=== PATIENT | male | born 1975 | race African-American/Black ===

== ENCOUNTER 2016-06-02 03:03 | Observation (INO) | payer MEDICAID ==
[~2016-06-02] VITALS: Ht 172.7 cm; Wt 105.0 kg
[2016-06-02] VITALS (7 sets, daily range): BP systolic 119–142; BP diastolic 56–86; PULSE 79–114; RESP 15–20; TEMP 97.9–99.9; O2SAT 96–100
[~2016-06-02 03:03] MED LIST: ALBU8I INH; AMLO5TAB22 PO; ATRO0.05 EACH EYE; FISH1000 PO; HYDR-3535 PO; PRED1SUS OP; ZOFR4TAB3 SL
[2016-06-02] MEDS ORDERED: CELE200C PO (03:27)
[2016-06-02] MEDS ORDERED: ATRO1SOL11 EACH EYE (03:27)
[2016-06-02] MEDS ORDERED: GABA300C5 PO (03:27)
[2016-06-02] MEDS ORDERED: PRED1SUS EACH EYE (03:27)
[2016-06-02] MEDS ORDERED: ASPI325T PO (03:27)
[2016-06-02] MEDS ORDERED: AMLO10TA2 PO (03:27)
[2016-06-02] MEDS ORDERED: COMB0.2S EACH EYE (03:27)
[2016-06-02] MEDS ORDERED: TRAM50TA PO (03:27)
--- NOTE | 2016-06-02 03:39 | PD ---
HPI Chief Complaint: Skin Problem Time Seen by Provider: 03:35 Travel History International Travel<30 days: No Contact w/Intl Traveler<30days: No Traveled to known affect area: No History of Present Illness HPI This is a 40-year-old male who had a total hip replacement 10 days ago at an outside hospital who presents to the emergency department 2 days of soreness and pain in his right buttock area, constant, severe making it difficult for him to lay on his buttocks. He also has an area of swelling on his left thigh which is smaller. He denies any fevers or chills. He's not had a bowel movement today and isn't sure if it's painful when he defecates. He does have a history of ankylosing spondylitis. PFSH Past Medical History Asthma: Yes Cardiovascular Problems: Yes (IRREGULAR HEART BEAT) Diminished Hearing: No Hypertension: Yes Musculoskeletal: Yes (HIP DISEASE) Respiratory: Yes (ASTHMA) Past Surgical History Eye Surgery: Yes (EYERITIS) Social History Alcohol Use: No Tobacco Use: Yes (QUIT 12/2015) Substance Use: Yes (MARIJUANA) Allergies-Medications (Allergen,Severity, Reaction): Coded Allergies: No Known Allergies (Verified , 06/02/16) Reported Meds & Prescriptions Reported Meds & Active Scripts Active Reported Combigan Opth Drops (Brimonidine-Timolol Opth Drops) 0.2-0.5% Soln 1 Drop EACH EYE Q12HR Atropine Opth Drops 1% Soln 1 Drop EACH EYE TID Pred Forte Opth Drops (Prednisolone Acetate Opth Drops) 1% Susp 1 Drop EACH EYE QID Aspirin 325 Mg Tab 325 Mg PO BID Amlodipine (Amlodipine Besylate) 10 Mg Tab 10 Mg PO DAILY Tramadol (Tramadol HCl) 50 Mg Tab 50 Mg PO Q8H PRN Gabapentin 300 Mg Cap 300 Mg PO HS Celebrex (Celecoxib) 200 Mg Cap 200 Mg PO BID Review of Systems Except as stated in HPI: all other systems reviewed are Neg Physical Exam Narrative GENERAL:Well appearing, no acute distress SKIN: Induration of the right buttock along the crease extending from the top to the rectum, rectal exam is tender to palpation, area is warm. Small discrete area proximal to the left hip replacement scar which is raised but not warm or indurated. HEAD: Atraumatic. Normocephalic. EYES: Pupils equal and round. No injection or drainage. ENT: Moist mucous membranes NECK: Trachea midline. CARDIOVASCULAR: Regular rate and rhythm. No murmur appreciated. RESPIRATORY: Clear to auscultation. Breath sounds equal bilaterally. GASTROINTESTINAL: Abdomen soft, non-tender, nondistended. MUSCULOSKELETAL: No obvious deformities. NEUROLOGICAL: Awake and alert. No obvious cranial nerve deficits. Moving all extremities. PSYCHIATRIC: Appropriate mood and affect; insight and judgment normal. Data Data Last Documented VS Vital Signs Date Time Temp Pulse Resp B/P Pulse Ox O2 Delivery O2 Flow Rate FiO2 06/02/16 03:05 97.9 114 15 142/86 97 Room Air Orders Complete Blood Count With Diff (06/02/16 03:36) Comprehensive Metabolic Panel (06/02/16 03:36) ^ Insert Iv (06/02/16 03:36) Westergren Sedimentation Rate (06/02/16 03:36) C-Reactive Protein (Crp) (06/02/16 03:36) Ct Pelvis W Iv Contrast(Rout) (06/02/16 ) Iohexol 350 Inj (Omnipaque 350 Inj) (06/02/16 05:34) Labs Laboratory Tests Test 06/02/16 03:50 White Blood Count 8.2 TH/MM3 Red Blood Count 4.09 MIL/MM3 Hemoglobin 11.2 GM/DL Hematocrit 32.9 % Mean Corpuscular Volume 80.3 FL Mean Corpuscular Hemoglobin 27.3 PG Mean Corpuscular Hemoglobin 34.0 % Concent Red Cell Distribution Width 15.9 % Platelet Count 326 TH/MM3 Mean Platelet Volume 7.6 FL Neutrophils (%) (Auto) 76.1 % Lymphocytes (%) (Auto) 16.4 % Monocytes (%) (Auto) 6.5 % Eosinophils (%) (Auto) 0.6 % Basophils (%) (Auto) 0.4 % Neutrophils # (Auto) 6.3 TH/MM3 Lymphocytes # (Auto) 1.3 TH/MM3 Monocytes # (Auto) 0.5 TH/MM3 Eosinophils # (Auto) 0.0 TH/MM3 Basophils # (Auto) 0.0 TH/MM3 CBC Comment DIFF FINAL Differential Comment Erythrocyte Sedimentation Rate 37 mm/hr Sodium Level 139 MEQ/L Potassium Level 4.0 MEQ/L Chloride Level 106 MEQ/L Carbon Dioxide Level 24.5 MEQ/L Anion Gap 9 MEQ/L Blood Urea Nitrogen 18 MG/DL Creatinine 0.88 MG/DL Estimat Glomerular Filtration 116 ML/MIN Rate Random Glucose 101 MG/DL Calcium Level 8.5 MG/DL Total Bilirubin 0.5 MG/DL Aspartate Amino Transf 20 U/L (AST/SGOT) Alanine Aminotransferase 30 U/L (ALT/SGPT) Alkaline Phosphatase 67 U/L C-Reactive Protein 2.33 MG/DL Total Protein 7.0 GM/DL Albumin 3.6 GM/DL MDM Medical Decision Making Medical Screen Exam Complete: Yes Emergency Medical Condition: Yes Interpretation(s) Afebrile, tachycardic, mild hypertension No leukocytosis Electrolytes are reassuring CRP is 2.3 Sedimentation rate is 37 Last [address] 06/02/16 0000 Signed Impressions: Service Date/Time: Thursday, June 02, 2016 05:55 - CONCLUSION: Mild subcutaneous stranding of the bilateral gluteal regions without evidence for abscess. Eladio Vasquez MD Differential Diagnosis Perirectal abscess, perianal abscess, sepsis Narrative Course This is a 40-year-old male who had a total hip replacement 10 days ago in [place] who presents the emergency department with pain in his rectal area and involving the buttocks. Labs are obtained which demonstrate elevated inflammatory markers but a normal white blood cell count. CT was obtained which demonstrates stranding in the gluteal region. Clinically I think the patient has a perirectal abscess. I spoke to Dr. Alonzo with colorectal surgery who is going to come see the patient in the emergency department and evaluate him. Zee Gómez MD Jun 02, 2016 03:39
[2016-06-02 04:10] LABS: AUTOMATED NEUTROPHIL # 6.3 TH/MM3 (1.8-7.7); BASOPHIL % 0.4 % (0.0-2.0); EOSINOPHIL % 0.6 % (0.0-4.0); HEMATOCRIT 32.9 % (39.0-51.0); HEMO FLAGS DIFF FINAL; LYMPH % 16.4 % (9.0-44.0); LYMPHOCYTE # 1.3 TH/MM3 (1.0-4.8); MEAN CELL VOLUME 80.3 FL (80.0-100.0); MEAN CORPUSCULAR HEMOGLOBIN 27.3 PG (27.0-34.0); MONO % 6.5 % (0.0-8.0); NEUT % 76.1 % (16.0-70.0); PLATELET COUNT 326 TH/MM3 (150-450); RED BLOOD COUNT 4.09 MIL/MM3 (4.50-5.90); RED CELL DISTRIBUTION WIDTH 15.9 % (11.6-17.2); WHITE BLOOD COUNT 8.2 TH/MM3 (4.0-11.0)
[2016-06-02 04:21] LABS: ALT (GPT) 30 U/L (12-78); ANION GAP 9 MEQ/L (5-15); AST (GOT) 20 U/L (15-37); BICARBONATE 24.5 MEQ/L (21.0-32.0); BLOOD UREA NITROGEN 18 MG/DL (7-18); CHLORIDE 106 MEQ/L (98-107); GLOMERULAR FILTRATION RATE 116 ML/MIN (>89); SODIUM (NA) 139 MEQ/L (136-145)
[2016-06-02 04:23] LABS: ALKALINE PHOSPHATASE 67 U/L (45-117); TOTAL BILIRUBIN ADULT 0.5 MG/DL (0.2-1.0)
[2016-06-02] MEDS ORDERED: IOHEXOL 350 MG/ML 10 ML VIAL (for RAD DIAG) IV ONE (05:34)
--- NOTE | 2016-06-02 06:41 | RADRPT ---
EXAM DATE/TIME: 06/02/2016 05:55 [facility] COMPARISON: No previous studies available for comparison. INDICATIONS : Buttock pain following hip replacement surgery Evaluate abscess. IV CONTRAST: 100 cc Omnipaque 350 (iohexol) IV ORAL CONTRAST: No oral contrast ingested. RADIATION DOSE: 18.67 CTDIvol (mGy) MEDICAL HISTORY : Hypertension. SURGICAL HISTORY : Hip replacement ENCOUNTER: Initial ACUITY: 1 day PAIN SCALE: 8/10 LOCATION: Perianal TECHNIQUE: Volumetric scanning of the pelvis was performed. Using automated exposure control and adjustment of t he mA and/or kV according to patient size, radiation dose was kept as low as reasonably achievable to obtain optimal diagnostic quality images. FINDINGS: There are bilateral total hip arthroplasties. Visualized bowel and urinary bladder are unremarkable. No free fluid. No adenopathy. There is subcutaneous stranding of the bilateral gluteal soft tissues b ut there is no evidence for abscess. CONCLUSION: Mild subcutaneous stranding of the bilateral gluteal regions without evidence for abscess. Eladio Vasquez MD on June 02, 2016 at 6:39 Board Certified Radiologist. This report was verified electronically.
[2016-06-02] MEDS ORDERED: ONDANSETRON HCL 4 MG/2 ML VIAL ONE (08:26)
[2016-06-02] MEDS ORDERED: ONDANSETRON ODT 4 MG TAB PO ONE (08:30)
--- NOTE | 2016-06-02 08:31 | PD ---
Physical Exam Date Seen by Provider: Jun 02, 2016 Data Data Last Documented VS Vital Signs Date Time Temp Pulse Resp B/P Pulse Ox O2 Delivery O2 Flow Rate FiO2 06/02/16 03:05 97.9 114 15 142/86 97 Room Air Orders Complete Blood Count With Diff (06/02/16 03:36) Comprehensive Metabolic Panel (06/02/16 03:36) ^ Insert Iv (06/02/16 03:36) Westergren Sedimentation Rate (06/02/16 03:36) C-Reactive Protein (Crp) (06/02/16 03:36) Ct Pelvis W Iv Contrast(Rout) (06/02/16 ) Iohexol 350 Inj (Omnipaque 350 Inj) (06/02/16 05:34) Electrocardiogram (06/02/16 ) Ondansetron Odt (Zofran Odt) (06/02/16 08:30) Ondansetron Inj (Zofran Inj) (06/02/16 08:26) Vancomycin Inj (Vancomycin Inj) (06/02/16 08:45) Admit Order (Ed Use Only) (06/02/16 08:35) Labs Laboratory Tests Test 06/02/16 03:50 White Blood Count 8.2 TH/MM3 Red Blood Count 4.09 MIL/MM3 Hemoglobin 11.2 GM/DL Hematocrit 32.9 % Mean Corpuscular Volume 80.3 FL Mean Corpuscular Hemoglobin 27.3 PG Mean Corpuscular Hemoglobin 34.0 % Concent Red Cell Distribution Width 15.9 % Platelet Count 326 TH/MM3 Mean Platelet Volume 7.6 FL Neutrophils (%) (Auto) 76.1 % Lymphocytes (%) (Auto) 16.4 % Monocytes (%) (Auto) 6.5 % Eosinophils (%) (Auto) 0.6 % Basophils (%) (Auto) 0.4 % Neutrophils # (Auto) 6.3 TH/MM3 Lymphocytes # (Auto) 1.3 TH/MM3 Monocytes # (Auto) 0.5 TH/MM3 Eosinophils # (Auto) 0.0 TH/MM3 Basophils # (Auto) 0.0 TH/MM3 CBC Comment DIFF FINAL Differential Comment Erythrocyte Sedimentation Rate 37 mm/hr Sodium Level 139 MEQ/L Potassium Level 4.0 MEQ/L Chloride Level 106 MEQ/L Carbon Dioxide Level 24.5 MEQ/L Anion Gap 9 MEQ/L Blood Urea Nitrogen 18 MG/DL Creatinine 0.88 MG/DL Estimat Glomerular Filtration 116 ML/MIN Rate Random Glucose 101 MG/DL Calcium Level 8.5 MG/DL Total Bilirubin 0.5 MG/DL Aspartate Amino Transf 20 U/L (AST/SGOT) Alanine Aminotransferase 30 U/L (ALT/SGPT) Alkaline Phosphatase 67 U/L C-Reactive Protein 2.33 MG/DL Total Protein 7.0 GM/DL Albumin 3.6 GM/DL [facility] Medical Record Reviewed: Yes Supervised Visit with ANGEL: No Interpretation(s) EKG at 0906: NSR at 88bpm, qt/qtc: 335/381, no acute st or t wave changes, non acute ekg Narrative Course Patient is a 40-year-old male signed out to me by Dr. Gómez, patient pending evaluation by Dr. Ritter Dr. Alonzo saw patient at bedside, plan to bring patient to the operating room for evaluation of right buttock abscess versus cellulitis. Patient will go to the operating room today for possible I&D and drainage Patient will be admitted to family practice service, case was reviewed with Dr. Ritchie who accepts pt to service Physician Communication Physician Communication reviewed case with Dr Alonzo and FP residents Diagnosis Primary Impression: Perirectal abscess Additional Impression: Perirectal cellulitis Admitting Information Admitting Physician Requests: Admit Hilary Rain DO Jun 02, 2016 08:31
--- NOTE | 2016-06-02 08:34 | HHI.HP ---
[facility] Service Family Medicine Primary Care Physician Tremayne Wellington M.D. Admission Diagnosis Diagnoses: International Travel<30 Days: No Contact w/Intl Traveler<30days: No Known Affected Area: No History of Present Illness Patient is a 40-year-old male with a PMH significant for ankylosing spondylitis , HTN. Presents here today due to new onset "bumps" all over his body but most prominent on his right buttock. Patient started developing these bumps over the last 3 days that have progressively increased in size and numbers. Start as a purititic area that then progresses to a painful lump without drainage or erythema. Firm and warm to touch. They are currently located on bilateral arms , bilateral hips, buttock. Associated with nausea but without vomiting. Endorses chills but no fevers. Denies abdominal pain, diarrhea, dysuria, chest pain, SOB. History significant for right hip total replacement on 05/22/2016 that was performed at in [place] by Dr. Chancellor Loera. Patient was not discharged on any antibiotics. This is the first episode of such events. No history of IV drug use. (Laura Ramachandran MD R2) Review of Systems Constitutional: COMPLAINS OF: Chills, DENIES: Fever, Change in appetite Eyes: DENIES: Blurred vision Respiratory: DENIES: Cough, Shortness of breath Cardiovascular: DENIES: Chest pain, Dyspnea on Exertion, Lower Extremity Edema Gastrointestinal: COMPLAINS OF: Nausea, DENIES: Abdominal pain, Diarrhea, Vomiting Genitourinary: DENIES: Dysuria Integumentary: COMPLAINS OF: Pruritus, DENIES: Abnormal pigmentation, Rash Neurologic: DENIES: Headache (Laura Ramachandran MD R2) Past Family Social History Past Medical History Ankylosing spondylitis Hypertension 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 Past Surgical History Left hip replacement 02/2016 Right hip replacement 05/22/2016 complicated by right foot drop Reported Medications Reported Meds & Active Scripts Active Reported Combigan Opth Drops (Brimonidine-Timolol Opth Drops) 0.2-0.5% Soln 1 Drop EACH EYE Q12HR Atropine Opth Drops 1% Soln 1 Drop EACH EYE TID Pred Forte Opth Drops (Prednisolone Acetate Opth Drops) 1% Susp 1 Drop EACH EYE QID Aspirin 325 Mg Tab 325 Mg PO BID Amlodipine (Amlodipine Besylate) 10 Mg Tab 10 Mg PO DAILY Tramadol (Tramadol HCl) 50 Mg Tab 50 Mg PO Q8H PRN Gabapentin 300 Mg Cap 300 Mg PO HS Celebrex (Celecoxib) 200 Mg Cap 200 Mg PO BID (Laura Ramachandran MD R2) Allergies: Coded Allergies: No Known Allergies (Verified , 06/02/16) Family History Mother: Hypertension, multiple myeloma Father: Unknown Social History Lives with godmother Alcohol: Denies Tobacco: Denies Illicit: Marijuana daily but did quit prior to surgery on 05/22/2016. Denies IV drug use (Laura Ramachandran MD R2) Physical Exam Vital Signs Vital Signs Date Time Temp Pulse Resp B/P Pulse Ox O2 Delivery O2 Flow Rate FiO2 06/02/16 03:05 97.9 114 15 142/86 97 Room Air Physical Exam GENERAL: This is a well-nourished, well-developed patient, in no apparent distress. SKIN: Multiple, large indurated areas on bilateral buttocks, bilateral upper extremities and right hip just below bandage at site of incision. Non- erythematous. Warm to touch. No drainage present, indurated. Bandage over her right incision dry but with some old blood underneath the center of the bandage. EYES: Abnormal shaped pupils bilaterally. Right poorly reactive to light. Left unremarkable. No scleral icterus. No injection or drainage. ENT: Nose without bleeding, purulent drainage. Throat without erythema, tonsillar hypertrophy or exudate. Uvula midline. Airway patent. CARDIOVASCULAR: Regular rate and rhythm without murmurs, gallops, or rubs. RESPIRATORY: Clear to auscultation. Breath sounds equal bilaterally. No wheezes , rales, or rhonchi. GASTROINTESTINAL: Abdomen soft, non-tender, nondistended. No hepato-splenomegaly , or palpable masses. No guarding. MUSCULOSKELETAL: Right foot in boot. Extremities without clubbing, cyanosis, or edema. No calf tenderness. NEUROLOGICAL: Awake and alert. Normal speech. Laboratory Laboratory Tests Test 06/02/16 03:50 White Blood Count 8.2 Red Blood Count 4.09 Hemoglobin 11.2 Hematocrit 32.9 Mean Corpuscular Volume 80.3 Mean Corpuscular Hemoglobin 27.3 Mean Corpuscular Hemoglobin 34.0 Concent Red Cell Distribution Width 15.9 Platelet Count 326 Mean Platelet Volume 7.6 Neutrophils (%) (Auto) 76.1 Lymphocytes (%) (Auto) 16.4 Monocytes (%) (Auto) 6.5 Eosinophils (%) (Auto) 0.6 Basophils (%) (Auto) 0.4 Neutrophils # (Auto) 6.3 Lymphocytes # (Auto) 1.3 Monocytes # (Auto) 0.5 Eosinophils # (Auto) 0.0 Basophils # (Auto) 0.0 CBC Comment DIFF FINAL Differential Comment Erythrocyte Sedimentation Rate 37 Sodium Level 139 Potassium Level 4.0 Chloride Level 106 Carbon Dioxide Level 24.5 Anion Gap 9 Blood Urea Nitrogen 18 Creatinine 0.88 Estimat Glomerular Filtration 116 Rate Random Glucose 101 Calcium Level 8.5 Total Bilirubin 0.5 Aspartate Amino Transf 20 (AST/SGOT) Alanine Aminotransferase 30 (ALT/SGPT) Alkaline Phosphatase 67 C-Reactive Protein 2.33 Total Protein 7.0 Albumin 3.6 (Laura Ramachandran MD R2) Result Diagram: 06/02/16 0350 06/02/16 0350 Imaging Last Impressions Pelvis CT 06/02/16 0000 Signed Impressions: Service Date/Time: Thursday, June 02, 2016 05:55 - CONCLUSION: Mild subcutaneous stranding of the bilateral gluteal regions without evidence for abscess. Eladio Vasquez MD (Laura Ramachandran MD R2) Assessment and Plan Assessment and Plan 40-year-old male with a PMH significant for ankylosing spondylitis. Admitted for possible perianal abscess and new onset skin induration on upper and lower extremities Code Status Full Discussed Condition With Dr. Martinez and Dr. Short (Laura Ramachandran MD R2) Attending Attestation THIS CASE WAS DISCUSSED WITH THE RESIDENT PHYSICIANS. I HAVE REVIEWED THE RECORD AND AGREE WITH THE ABOVE NOTE AND PLAN OF CARE WAS DISCUSSED. I HAVE AUTHORIZED THE ORDER FOR ADMISSION TO AN IN-PATIENT STATUS. (Troy Short MD) Problem List: (1) Perirectal abscess Status: Acute Plan: New-onset perirectal abscess that has acutely worsened over the last few days. No systemic symptoms. Afebrile and no leukocytosis. Based on results of I&D by colorectal, will need to consider other etiologies including polyarthritis nodosum vs hardware infection from recent total right hip replacement. Will provide broad-spectrum antibiotics in the interim. -CBC, CMP unremarkable -Blood cultures obtained -UA negative -Hepatitis panel ordered -CRP and ESR slightly elevated. Colorectal surgery consulted: Appreciate recommendations * I&D now * Requested that if wound does not produce very much fluid, consider biopsy for evaluation of CRUZ Imaging: * CT pelvis: Mild subcutaneous stranding of the bilateral gluteal region without evidence of abscess Medications: * Vancomycin 06/02- * Zosyn 06/02- (2) Ankylosing spondylitis Status: Acute Plan: Long history of ankylosing spondylitis that has been complicated by eye complications. -Continue home eyedrops which includes the following (atropine, brimodidine- timolol, prednisolone) (3) History of total right hip arthroplasty Status: Acute Plan: Recent surgical intervention on 05/22/19 17,000 complicated by right foot drop. Was not discharged on any home antibiotics. 1 skin lesion was close to incision. Based on clinical improvement, will consider calling orthopedic surgeon as needed. -Continue home gabapentin and aspirin (4) Nutrition, metabolism, and development symptoms Status: Acute Plan: Diet: NPO until after surgery Electrolytes: Unremarkable, continue to monitor Fluids: NS at 60 DVT prophylaxis: SCD GI prophylaxis: Not indicated Chronic conditions: * HTN: Continue home amlodipine (Laura Ramachandran MD R2) Laura Ramachandran MD R2 Jun 02, 2016 08:34 Troy Short MD Jun 02, 2016 17:50
[2016-06-02] MEDS ORDERED: VANCOMYCIN INJ 1,600 MG in SODIUM CHLORID 0.9% 500 ML INJ 500 ML IV ONE (08:45)
[2016-06-02] MEDS ORDERED: ASPIRIN 325 MG TAB PO SCH (09:00)
[2016-06-02] MEDS ORDERED: NON-FORMULARY DRUG (Brimonidine-Timolol Opth Drops (Combigan Opth Drops) 1 DROP) EACH EYE SCH (09:00)
[2016-06-02] MEDS ORDERED: SODIUM CHLOR 0.9% 1000 ML INJ 1,000 ML IV SCH (09:06)
[2016-06-02] MEDS ORDERED: ACETAMINOPHEN/HYDROcodone 325 MG/5 MG TAB PO PRN (09:15)
[2016-06-02] MEDS ORDERED: SODIUM CHLORIDE 0.9% FLUSH 5 ML FLUSH FLUSH PRN (09:15)
[2016-06-02] MEDS ORDERED: Vancomycin Consult Pharmacy 1 EA OTHER SCH (09:15)
[2016-06-02] MEDS ORDERED: ACETAMINOPHEN 325 MG TAB PO PRN (09:15)
[2016-06-02] MEDS ORDERED: NALOXONE HCL 0.4 MG/ML AMP IV PRN (09:15)
[2016-06-02] MEDS ORDERED: MORPHINE SULFATE 4 MG/ML INJ IV PRN (09:15)
[2016-06-02] MEDS ORDERED: LIDOCAINE 1%/EPINEPHrine 1:100,000 SOLN 30 ML VIAL ONE (09:44)
[2016-06-02] MEDS ORDERED: BUPIVACAINE HCL PF 0.5% 30 ML VIAL ONE (09:44)
[2016-06-02] MEDS ORDERED: BUPIVACAINE/EPINEPHRINE 0.5% PF 30 ML VIAL ONE (09:45)
[2016-06-02] MEDS: BRIMONIDINE TARTRATE 0.2% OPHT SOLN 5 ML BTL EACH EYE SCH ×2 (10:11→21:55)
[2016-06-02] MEDS: TIMOLOL MALEATE 0.5% OPHT SOLN 5 ML BTL EACH EYE SCH ×2 (10:11→21:55)
[2016-06-02] MEDS: ATROPINE SULFATE 1% OPHT SOLN 2 ML BTL EACH EYE SCH ×3 (10:11→16:38)
[2016-06-02] MEDS: prednisoLONE ACETATE 1% OPHT SUSP 5 ML BTL EACH EYE SCH ×4 (10:12→20:19)
[2016-06-02] MEDS: PIPERACIL-TAZO 3.375 GM PREMIX 50 ML IV SCH ×3 (10:52→21:56)
[2016-06-02 11:13] LABS: BLOOD, URINE NEG (NEG); COMMENT (UR) CULT NOT INDICATED; CULTURE IF INDICATED CULT NOT INDICATED; GLUCOSE,URINE NEG (NEG); KETONE, URINE NEG (NEG); MUCUS URINE FEW /lpf (OCC); NITRITE,URINE NEG (NEG); PH, URINE 5.5 (5.0-8.5); SQUAMOUS EPITHELIAL CELL URINE <1 /hpf (0-5); URINE COLOR YELLOW (YELLW/STRAW)
[2016-06-02] MEDS ORDERED: MORPHINE SULFATE 4 MG/ML INJ IV PUSH PRN (11:15)
[2016-06-02] MEDS ORDERED: ceFAZolin 1,000 MG/NS 100 ML IV SCH ×2 (13:00)
[2016-06-02] MEDS: SODIUM CHLOR 0.9% 1000 ML INJ 1,000 ML IV SCH ×2 (13:00→14:29)
[2016-06-02] MEDS ORDERED: METRONIDAZOLE 500 MG/100 ML ISONTONIC SOLN IV SCH (13:00)
[2016-06-02] MEDS ORDERED: FAMOTIDINE 20 MG/2 ML VIAL ONE (13:07)
[2016-06-02] MEDS ORDERED: PHENYLEPH/NS 1000 MCG/10 ML SYR IV ONE (13:38)
[2016-06-02] MEDS ORDERED: NEOSTIGMINE 3 MG/3 ML SYR IV ONE (13:38)
[2016-06-02] MEDS ORDERED: ONDANSETRON HCL 4 MG/2 ML VIAL IV PUSH ONE (13:38)
[2016-06-02] MEDS ORDERED: PROPOFOL 200 MG/20 ML AMP IV ONE (13:38)
[2016-06-02] MEDS ORDERED: MIDAZOLAM HCL 2 MG/2 ML VIAL ONE (14:18)
[2016-06-02] MEDS ORDERED: fentaNYL CITRATE 250 MCG/5 ML AMP ONE (14:18)
[2016-06-02] MEDS ORDERED: DO NOT ADM ANY ANTICOAGULANT DRUGS XX PRN (14:45)
[2016-06-02] MEDS ORDERED: ENALAPRILAT 1.25 MG/ML VIAL IV PRN (17:15)
[2016-06-02] MEDS: ACETAMINOPHEN/HYDROcodone 325 MG/10 MG TAB PO PRN ×2 (17:31→21:55)
--- NOTE | 2016-06-02 17:50 | HHI.HP ---
[facility] Service Family Medicine Primary Care Physician Tremayne Wellington M.D. Admission Diagnosis Diagnoses: (1) Perirectal abscess (2) Ankylosing spondylitis (3) History of total right hip arthroplasty (4) Nutrition, metabolism, and development symptoms International Travel<30 Days: No Contact w/Intl Traveler<30days: No Known Affected Area: No History of Present Illness 40 yo M presenting with 3 days of subcutaneous nodules presenting over his body. He states that he noticed these nodules starting 3 days ago most noticeably in the buttocks and perirectal area, however he has noticed them on his back, bilateral upper extremities, and bilateral legs/thighs. These nodules are tender to touch and pressure as well as pruritic. He also has developed nausea without vomiting. He denies fevers/chills, recent illness, or chest pain/palpitations. The nodules on his buttock are exquisitely painful and feel swollen to the patient, however have not had any drainage from them. He has a h/o ankylosing spondylitis diagnosed in 2014. He also has recently had both of his hips replaced, with his right hip the most recently done on 05/22 after which he developed right lower leg drop-foot and later lower leg numbness. Review of Systems Constitutional: COMPLAINS OF: Fatigue, Chills, DENIES: Fever, Dizziness Eyes: DENIES: Blurred vision, Eye pain, Vision loss Ears, nose, mouth, throat: DENIES: Tinnitus Respiratory: DENIES: Cough, Wheezing, Shortness of breath Cardiovascular: DENIES: Chest pain, Palpitations, Lower Extremity Edema Gastrointestinal: COMPLAINS OF: Nausea, DENIES: Abdominal pain, Vomiting Musculoskeletal: COMPLAINS OF: Joint pain, DENIES: Muscle aches, Stiffness, Joint Swelling Past Family Social History Past Medical History Ankylosing spondylitis Hypertension 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 Past Surgical History Left hip replacement 02/2016 Right hip replacement 05/22/2016 complicated by right foot drop Allergies: Coded Allergies: No Known Allergies (Verified , 06/02/16) Family History Mother: Hypertension, multiple myeloma Father: Unknown Social History Lives with godmother Alcohol: Denies Tobacco: Denies Illicit: Marijuana daily but did quit prior to surgery on 05/22/2016. Denies IV drug use Physical Exam Vital Signs Vital Signs Date Time Temp Pulse Resp B/P Pulse Ox O2 Delivery O2 Flow Rate FiO2 06/02/16 16:00 98.7 79 18 126/56 98 06/02/16 14:45 99.0 76 17 114/62 97 Nasal Cannula 2 06/02/16 14:30 79 19 113/63 97 Nasal Cannula 2 06/02/16 14:15 74 14 117/67 97 Nasal Cannula 2 06/02/16 14:09 99.1 73 15 116/62 94 Nasal Cannula 2 06/02/16 12:00 99.9 89 18 123/63 99 06/02/16 09:52 102 18 119/74 100 Room Air 06/02/16 09:34 97 06/02/16 03:05 97.9 114 15 142/86 97 Room Air Physical Exam GENERAL: This is a well-nourished, well-developed patient, lying comfortably in bed SKIN: Multiple, large indurated areas on bilateral buttocks, bilateral upper extremities, left scapular area, and right hip just below bandage at site of incision. Non-erythematous. Warm to touch. No drainage present, indurated. Bandage over her right incision dry but with some old blood underneath the center of the bandage. CARDIOVASCULAR: Regular rate and rhythm without murmurs, gallops, or rubs. RESPIRATORY: Clear to auscultation. Breath sounds equal bilaterally. No wheezes , rales, or rhonchi. GASTROINTESTINAL: Abdomen soft, non-tender, nondistended. MUSCULOSKELETAL: Right foot splint for drop-foot. Extremities without clubbing, cyanosis, or edema. No calf tenderness. NEUROLOGICAL: Awake and alert. Normal speech. Laboratory Laboratory Tests Test 06/02/16 06/02/16 03:50 10:53 White Blood Count 8.2 Red Blood Count 4.09 Hemoglobin 11.2 Hematocrit 32.9 Mean Corpuscular Volume 80.3 Mean Corpuscular Hemoglobin 27.3 Mean Corpuscular Hemoglobin 34.0 Concent Red Cell Distribution Width 15.9 Platelet Count 326 Mean Platelet Volume 7.6 Neutrophils (%) (Auto) 76.1 Lymphocytes (%) (Auto) 16.4 Monocytes (%) (Auto) 6.5 Eosinophils (%) (Auto) 0.6 Basophils (%) (Auto) 0.4 Neutrophils # (Auto) 6.3 Lymphocytes # (Auto) 1.3 Monocytes # (Auto) 0.5 Eosinophils # (Auto) 0.0 Basophils # (Auto) 0.0 CBC Comment DIFF FINAL Differential Comment Erythrocyte Sedimentation Rate 37 Sodium Level 139 Potassium Level 4.0 Chloride Level 106 Carbon Dioxide Level 24.5 Anion Gap 9 Blood Urea Nitrogen 18 Creatinine 0.88 Estimat Glomerular Filtration 116 Rate Random Glucose 101 Calcium Level 8.5 Total Bilirubin 0.5 Aspartate Amino Transf 20 (AST/SGOT) Alanine Aminotransferase 30 (ALT/SGPT) Alkaline Phosphatase 67 C-Reactive Protein 2.33 Total Protein 7.0 Albumin 3.6 Urine Color YELLOW Urine Turbidity CLEAR Urine pH 5.5 Urine Specific Hubbell GREATER THAN 1.050 Urine Protein TRACE Urine Glucose (UA) NEG Urine Ketones NEG Urine Occult Blood NEG Urine Nitrite NEG Urine Bilirubin NEG Urine Urobilinogen LESS THAN 2.0 Urine Leukocyte Esterase NEG Urine WBC 1 Urine Squamous Epithelial <1 Cells Urine Mucus FEW Microscopic Urinalysis Comment CULT NOT INDICATED Date/Time Procedure Status Source Growth 06/02/16 08:15 Aerobic Blood Culture Received Blood Peripheral Pending 06/02/16 08:15 Anaerobic Blood Culture Received Blood Peripheral Pending Result Diagram: 06/02/16 0350 06/02/16 0350 Imaging Last Impressions Pelvis CT 06/02/16 0000 Signed Impressions: Service Date/Time: Thursday, June 02, 2016 05:55 - CONCLUSION: Mild subcutaneous stranding of the bilateral gluteal regions without evidence for abscess. Eladio Vasquez MD Assessment and Plan Assessment and Plan 40-year-old male with a PMH significant for ankylosing spondylitis. Admitted for possible perianal abscess and new onset skin induration on upper and lower extremities Problem List: (1) Perirectal abscess Status: Acute Plan: New-onset perirectal abscess vs. cellulitis No systemic symptoms. Afebrile and no leukocytosis. Broad Spectrum antibiotics as below: Vancomycin 06/02- Zosyn 06/02- Colorectal consulted and following - will be taking patient to the OR for debridement and I&D of the area with cultures and possibly biopsy - CT scan without obvious fluid collection - Less likely auto-immune disorder or vasculitis - biopsy to be taken in the OR Blood cultures pending CBC, CMP unremarkable UA negative Hepatitis panel ordered CRP and ESR slightly elevated. (2) Ankylosing spondylitis Status: Acute Plan: Long history of ankylosing spondylitis that has been complicated by eye complications. -Continue home eyedrops which includes the following (atropine, brimodidine- timolol, prednisolone) (3) History of total right hip arthroplasty Status: Acute Plan: Recent surgical intervention on 05/22/19 17,000 complicated by right foot drop. Was not discharged on any home antibiotics. 1 skin lesion was close to incision. Based on clinical improvement, will consider calling orthopedic surgeon as needed. -Continue home gabapentin and aspirin (4) Nutrition, metabolism, and development symptoms Status: Acute Plan: Diet: NPO until after surgery Electrolytes: Unremarkable, continue to monitor Fluids: NS at 60 DVT prophylaxis: SCD GI prophylaxis: Not indicated Chronic conditions: * HTN: Continue home amlodipine Physician Certification 2 Midnight Certification Type: Admission for Inpatient Services Order for Inpatient Services The services are ordered in accordance with Medicare regulations or non- Medicare payer requirements, as applicable. In the case of services not specified as inpatient-only, they are appropriately provided as inpatient services in accordance with the 2-midnight benchmark. Estimated LOS (days): 2 2 days is the estimated time the patient will need to remain in the hospital, assuming treatment plan goals are met and no additional complications. Post-Hospital Plan: Not yet determined Troy Short MD Jun 02, 2016 17:50
[2016-06-02] MEDS: VANCOMYCIN INJ 2,000 MG in SODIUM CHLORID 0.9% 500 ML INJ 500 ML IV SCH (20:18)
[2016-06-02] MEDS: SODIUM CHLORIDE 0.9% FLUSH 5 ML FLUSH FLUSH SCH (20:18)
[2016-06-02] MEDS: GABAPENTIN 300 MG CAP PO SCH (20:19)
[2016-06-02] MEDS: ONDANSETRON HCL 4 MG/2 ML VIAL IVP PRN (20:31)
[2016-06-02] MEDS ORDERED: VANCOMYCIN INJ 1,750 MG in SODIUM CHLORID 0.9% 500 ML INJ 500 ML IV SCH (21:00)
[2016-06-02] MEDS: ACETAMINOPHEN 325 MG TAB PO PRN (23:54)
[2016-06-03] VITALS (9 sets, daily range): BP systolic 113–138; BP diastolic 55–78; PULSE 85–101; RESP 17–20; TEMP 98–101.6; O2SAT 95–99
[2016-06-03] MEDS: PIPERACIL-TAZO 3.375 GM PREMIX 50 ML IV SCH ×4 (04:59→21:49)
[2016-06-03] MEDS: ACETAMINOPHEN 325 MG TAB PO PRN (04:59)
[2016-06-03 05:35] LABS: AUTOMATED NEUTROPHIL # 7.1 TH/MM3 (1.8-7.7); BASOPHIL % 0.1 % (0.0-2.0); EOSINOPHIL # 0.1 TH/MM3 (0-0.4); EOSINOPHIL % 0.6 % (0.0-4.0); HEMATOCRIT 31.8 % (39.0-51.0); HEMO FLAGS DIFF FINAL; LYMPH % 13.4 % (9.0-44.0); LYMPHOCYTE # 1.2 TH/MM3 (1.0-4.8); MEAN CELL VOLUME 79.9 FL (80.0-100.0); MEAN CORPUSCULAR HEMOGLOBIN 27.4 PG (27.0-34.0); MEAN CORPUSCULAR HGB CONC 34.3 % (32.0-36.0); MONO % 4.5 % (0.0-8.0); NEUT % 81.4 % (16.0-70.0); PLATELET COUNT 287 TH/MM3 (150-450); RED BLOOD COUNT 3.99 MIL/MM3 (4.50-5.90); WHITE BLOOD COUNT 8.7 TH/MM3 (4.0-11.0)
[2016-06-03 05:54] LABS: ALKALINE PHOSPHATASE 59 U/L (45-117); ALT (GPT) 20 U/L (12-78); ANION GAP 8 MEQ/L (5-15); AST (GOT) 12 U/L (15-37); BICARBONATE 25.4 MEQ/L (21.0-32.0); BLOOD UREA NITROGEN 7 MG/DL (7-18); CHLORIDE 107 MEQ/L (98-107); GLOMERULAR FILTRATION RATE 94 ML/MIN (>89); POTASSIUM 3.5 MEQ/L (3.5-5.1); SODIUM (NA) 140 MEQ/L (136-145); TOTAL BILIRUBIN ADULT 1.1 MG/DL (0.2-1.0)
[2016-06-03] MEDS: ACETAMINOPHEN/HYDROcodone 325 MG/10 MG TAB PO PRN ×4 (06:18→21:46)
[2016-06-03] MEDS: prednisoLONE ACETATE 1% OPHT SUSP 5 ML BTL EACH EYE SCH ×4 (08:18→21:47)
[2016-06-03] MEDS: ATROPINE SULFATE 1% OPHT SOLN 2 ML BTL EACH EYE SCH ×3 (08:19→17:44)
[2016-06-03] MEDS: ASPIRIN 325 MG TAB PO SCH ×2 (08:20→21:41)
[2016-06-03] MEDS: VANCOMYCIN INJ 2,000 MG in SODIUM CHLORID 0.9% 500 ML INJ 500 ML IV SCH ×2 (08:21→21:35)
[2016-06-03] MEDS: SODIUM CHLORIDE 0.9% FLUSH 5 ML FLUSH FLUSH SCH ×2 (08:21→21:36)
[2016-06-03] MEDS: BRIMONIDINE TARTRATE 0.2% OPHT SOLN 5 ML BTL EACH EYE SCH ×2 (10:00→21:48)
[2016-06-03] MEDS: TIMOLOL MALEATE 0.5% OPHT SOLN 5 ML BTL EACH EYE SCH ×2 (10:00→21:48)
--- NOTE | 2016-06-03 10:20 | HHI.FPPN ---
Subjective Remarks Patient seen and examined this am. Febrile overnight. Reports mass/bump on back has enlarged that he can no longer lift his arm over his back. He reports new bumps are developing, the latest in his left thigh and right arm. His appetiitie is poor. He feels like hes ill and coming down with flu. He states Dr. Alonzo incised the abscess in his rectum but there was no drainage. After we stepped out of the room, the patient complained of lip swelling with no respiratory sx. The patient recieved no medications in the interim this am, he denies SOB, difficulty breathing, or feelings of throat swelling. (Digna Anderson MD R3) Objective Vitals Vital Signs Date Time Temp Pulse Resp B/P Pulse Ox O2 Delivery O2 Flow Rate FiO2 06/03/16 08:00 99.4 92 17 116/55 99 06/03/16 07:18 18 06/03/16 06:23 101.4 06/03/16 04:00 100.9 101 20 124/59 95 06/03/16 01:00 100.9 06/03/16 00:00 101.6 96 20 113/59 95 06/02/16 21:52 100 06/02/16 20:00 99.8 98 20 121/56 96 06/02/16 16:00 98.7 79 18 126/56 98 06/02/16 14:45 99.0 76 17 114/62 97 Nasal Cannula 2 06/02/16 14:30 79 19 113/63 97 Nasal Cannula 2 06/02/16 14:15 74 14 117/67 97 Nasal Cannula 2 06/02/16 14:09 99.1 73 15 116/62 94 Nasal Cannula 2 06/02/16 12:00 99.9 89 18 123/63 99 I/O 06/02/16 06/02/16 06/02/16 06/03/16 06/03/16 06/03/16 07:00 15:00 23:00 07:00 15:00 23:00 Intake Total 500 ml 582 ml 1138 ml Output Total 410 ml 400 ml 1600 ml Balance 90 ml 182 ml -462 ml Intake Oral 240 ml 360 ml IV Total 342 ml 778 ml Other 500 ml Output Urine Total 400 ml 400 ml 1600 ml Estimated Blood Loss 10 ml # Voids 1 # Bowel Movements 0 0 (Digna Anderson MD R3) Result Diagram: 06/03/16 0407 06/03/16 0407 Imaging Last Impressions Pelvis CT 06/02/16 0000 Signed Impressions: Service Date/Time: Thursday, June 02, 2016 05:55 - CONCLUSION: Mild subcutaneous stranding of the bilateral gluteal regions without evidence for abscess. Eladio Vasquez MD Objective Remarks GENERAL: This is a well-nourished, well-developed patient, lying comfortably in bed SKIN: Multiple, large indurated areas on bilateral buttocks, bilateral upper extremities, left scapular area (has increased in size from yesterday), new left thigh, and right hip just below bandage at site of incision. Non- erythematous. Warm to touch. No drainage present, indurated. Bandage over her right incision dry but with some old blood underneath the center of the bandage. CARDIOVASCULAR: Regular rate and rhythm without murmurs, gallops, or rubs. RESPIRATORY: Clear to auscultation. Breath sounds equal bilaterally. No wheezes , rales, or rhonchi. GASTROINTESTINAL: Abdomen soft, non-tender, nondistended. MUSCULOSKELETAL: Right foot splint for drop-foot. Bilateral wrist swelling appreciated. No calf tenderness. NEUROLOGICAL: Awake and alert. Normal speech. (Digna Anderson MD R3) A/P Assessment and Plan 40-year-old male with a PMH significant for ankylosing spondylitis. Admitted for possible perianal abscess and new onset skin induration on upper and lower extremities Discharge Planning DC pending further workup likely in several days. Case seen and discussed with Duarte York, Juan (Digna Anderson MD R3) Attending Attestation Pt. examined and case discussed with resident physicians I have read the above note and agree with the assessment/plan as discussed with me I was involved in all medical decision making for this patient. Troy Short MD (Troy Short MD) Problem List: (1) Skin abnormalities Status: Acute Plan: New-onset perirectal abscess vs. cellulitis vs. other Unclear if this process is representing an autoimmune process versus infectious versus allergic/reaction to hardware from hip replacement Broad Spectrum antibiotics as below: Vancomycin 06/02- Zosyn 06/02- Blood cultures obtained Due to the worsening nature today, presence of new masses/concerning areas further workup will include: Rheumatology consult MRI with contrast of area, scapula Rheumatology workup to include AMA, CRP, sedimentation rate, HLA-B27, SSA/SSB, complement C3-C4, DNA double-stranded, urine eosinophils Case was discussed with Dr. Banda who will perform biopsy of the area (2) Perirectal abscess Status: Acute Plan: Colorectal consulted and following - s/p debridement and I&D of the area with cultures, no drainage expressed per patient. No biopsy obtained in OR. - CT scan without obvious fluid collection See above. (3) Swelling of both lips Status: Acute Plan: Patient had lip swelling shortly after we examined the patient. Unclear etiology. Differential includes anesthesia side effect versus medication side effect versus other - Decadron 4 mg IV, will monitor for response - Benadryl 50 mg IV 1 - Hold Mundo-I - Continue to watch for any side effects with any medications. If Facial swelling worsens may need to be transferred to the ICU for closer monitoring. (4) Ankylosing spondylitis Status: Acute Plan: Long history of ankylosing spondylitis that has been complicated by eye complications. -Continue home eyedrops which includes the following (atropine, brimodidine- timolol, prednisolone) (5) History of total right hip arthroplasty Status: Acute Plan: Recent surgical intervention on 05/22/19 17,000 complicated by right foot drop. Was not discharged on any home antibiotics. 1 skin lesion was close to incision. Based on clinical improvement, will consider calling orthopedic surgeon as needed. -Continue home gabapentin and aspirin (6) Nutrition, metabolism, and development symptoms Status: Acute Plan: Diet: regular diet as tolerated, NPO at midnight for biopsy Electrolytes: Unremarkable, continue to monitor Fluids: HLIV DVT prophylaxis: SCD GI prophylaxis: Not indicated Chronic conditions: * HTN: Continue home amlodipine (Digna Anderson MD R3) Digna Anderson MD R3 Jun 03, 2016 10:20 Troy Short MD Jun 03, 2016 16:52
[2016-06-03] MEDS ORDERED: DEXAMETHASONE SOD PHOS 4 MG/ML VIAL IV PUSH STA (10:42)
[2016-06-03] MEDS ORDERED: diphenhydrAMINE HCL 50 MG/ML VIAL IV PUSH ONE (10:45)
--- NOTE | 2016-06-03 11:54 | RADRPT ---
EXAM DATE/TIME: 06/03/2016 11:28 [facility] COMPARISON: CHEST PA & LAT, July 21, 2015, 16:13. INDICATIONS : Evaluate for sacoidosis. MEDICAL HISTORY : None. SURGICAL HISTORY : None. ENCOUNTER: Initial ACUITY: 1 day PAIN SCORE: 0/10 LOCATION: Bilateral chest FINDINGS: PA and lateral views of the chest demonstrate the lungs to be symmetrically aerated without evidence of mass, infiltrate or effusion. There is some hypoaeration of the lungs most likely from poor inspir ation. The heart size is enlarged but stable compared to the prior study.. Osseous structures are in tact and stable. CONCLUSION: No acute disease. No significant change has occurred. Troy Cotter MD on June 03, 2016 at 11:52 Board Certified Radiologist. This report was verified electronically.
[2016-06-03] MEDS ORDERED: GADODIAMIDE PF 287 MG/ML 20 ML VIAL (for RAD MRI) IV ONE (12:25)
--- NOTE | 2016-06-03 12:36 | EKG ---
Date Performed: 06/02/2016 Time Performed: 09:06:18 PTAGE: 40 years EKG: Sinus rhythm NORMAL ECG PREVIOUS TRACING : 09/12/2015 12.30 Compared to prior tracing no significant change DOCTOR: Jero Hogue Interpretating Date/Time 06/03/2016 12:34:49
--- NOTE | 2016-06-03 13:03 | RADRPT ---
EXAM DATE/TIME: 06/03/2016 11:36 [facility] COMPARISON: No previous studies available for comparison. INDICATIONS : Left shoulder pain and swelling. RADIATION DOSE: 28.86 CTDIvol (mGy) MEDICAL HISTORY : Hypertension. SURGICAL HISTORY : None. ENCOUNTER: Initial ACUITY: 1 day PAIN SCALE: 5/10 LOCATION: Left shoulder. TECHNIQUE: Volumetric scanning of the shoulder was performed. Using automated exposure control and adjustment o f the mA and/or kV according to patient size, radiation dose was kept as low as reasonably achievable to obtain optimal diagnostic quality images. FINDINGS: BONES: No evidence of fracture. Alignment is within normal limits. JOINTS: No evidence of joint narrowing or effusion. SOFT TISSUES: There is some nonspecific edema in the subcutaneous soft tissues along the lateral and posterior aspe ct of the shoulder joint. There is normal density of the muscle structures that surrounded the should er joint. CONCLUSION: Nonspecific edema in the subcutaneous soft tissues along the lateral and posterior aspect of the shou lder joint. Troy Cotter MD on June 03, 2016 at 12:59 Board Certified Radiologist. This report was verified electronically.
--- NOTE | 2016-06-03 13:15 | RADRPT ---
EXAM DATE/TIME: 06/03/2016 12:06 [facility] COMPARISON: No previous studies available for comparison. INDICATIONS : Abscess. CONTRAST: 18 cc Omniscan (gadodiamide) IV MEDICAL HISTORY : Hypertension. SURGICAL HISTORY : Bilateral hip replacements. ENCOUNTER: Initial ACUITY: 1 day PAIN SCORE: 5/10 LOCATION: TECHNIQUE: Multiplanar, multisequence MRI examination was performed with and without contrast. FINDINGS: ROTATOR CUFF: The supraspinatus, infraspinatus, subscapularis, and teres minor tendons are intact. LABRUM: Labrum is within normal limits. MARROW/CARTILAGE: Bone marrow signal is homogeneous. Glenohumeral joint articular cartilage is within normal limits. N o evidence of joint effusion. OTHER: Acromioclavicular joint is within normal limits. Proximal biceps tendon is intact. There is mild deg enerative changes with a subchondral cyst along the humeral head near the insertion of the supraspina tus tendon. There is no evidence of fluid in the subacromial or subdeltoid bursa. There is some nonsp ecific edema in the subcutaneous soft tissues in the region of the shoulder. This does not involve th e surrounding muscle structures. No loculated fluid collections are seen. POST-CONTRAST: There are no abnormal areas of enhancement on the post-contrast images. CONCLUSION: 1. Nonspecific edema in the subcutaneous soft tissues in the region of the shoulder. No loculated flu id collections are demonstrated. 2. Mild primary degenerative type changes at the shoulder joint. 3. Otherwise, unremarkable examination for patient's age. Troy Cotter MD on June 03, 2016 at 13:10 Board Certified Radiologist. This report was verified electronically.
--- NOTE | 2016-06-03 14:10 | PD.CAR.PN ---
CVT Progress Note Subjective/Hospital Course: Patient with ankylosing spondylitis and recent appearance of large subcutaneous nodules Thought to be a rectal abscess apparently and was incised but no purulent material was obtained Patient has several large nodules which are clearly subcutaneous measuring about 3 cm in diameter each most prominent under the arms back and left thigh Will biopsy the left thigh nodule tomorrow Objective: Vital Signs Date Time Temp Pulse Resp B/P Pulse Ox O2 Delivery O2 Flow Rate FiO2 06/03/16 12:00 98.4 85 17 118/73 98 06/03/16 11:51 18 06/03/16 10:17 99 21 06/03/16 08:00 99.4 92 17 116/55 99 06/03/16 06:23 101.4 06/03/16 04:00 100.9 101 20 124/59 95 06/03/16 01:00 100.9 06/03/16 00:00 101.6 96 20 113/59 95 06/02/16 21:52 100 06/02/16 20:00 99.8 98 20 121/56 96 06/02/16 16:00 98.7 79 18 126/56 98 06/02/16 14:45 99.0 76 17 114/62 97 Nasal Cannula 2 06/02/16 14:30 79 19 113/63 97 Nasal Cannula 2 06/02/16 14:15 74 14 117/67 97 Nasal Cannula 2 Labs: Laboratory Tests Test 06/03/16 04:07 White Blood Count 8.7 TH/MM3 (4.0-11.0) Red Blood Count 3.99 MIL/MM3 (4.50-5.90) Hemoglobin 10.9 GM/DL (13.0-17.0) Hematocrit 31.8 % (39.0-51.0) Mean Corpuscular Volume 79.9 FL (80.0-100.0) Mean Corpuscular Hemoglobin 27.4 PG (27.0-34.0) Mean Corpuscular Hemoglobin 34.3 % Concent (32.0-36.0) Red Cell Distribution Width 16.0 % (11.6-17.2) Platelet Count 287 TH/MM3 (150-450) Mean Platelet Volume 7.9 FL (7.0-11.0) Neutrophils (%) (Auto) 81.4 % (16.0-70.0) Lymphocytes (%) (Auto) 13.4 % (9.0-44.0) Monocytes (%) (Auto) 4.5 % (0.0-8.0) Eosinophils (%) (Auto) 0.6 % (0.0-4.0) Basophils (%) (Auto) 0.1 % (0.0-2.0) Neutrophils # (Auto) 7.1 TH/MM3 (1.8-7.7) Lymphocytes # (Auto) 1.2 TH/MM3 (1.0-4.8) Monocytes # (Auto) 0.4 TH/MM3 (0-0.9) Eosinophils # (Auto) 0.1 TH/MM3 (0-0.4) Basophils # (Auto) 0.0 TH/MM3 (0-0.2) CBC Comment DIFF FINAL Differential Comment Sodium Level 140 MEQ/L (136-145) Potassium Level 3.5 MEQ/L (3.5-5.1) Chloride Level 107 MEQ/L (98-107) Carbon Dioxide Level 25.4 MEQ/L (21.0-32.0) Anion Gap 8 MEQ/L (5-15) Blood Urea Nitrogen 7 MG/DL (7-18) Creatinine 1.05 MG/DL (0.60-1.30) Estimat Glomerular Filtration 94 ML/MIN (>89) Rate Random Glucose 101 MG/DL (74-106) Calcium Level 7.8 MG/DL (8.5-10.1) Total Bilirubin 1.1 MG/DL (0.2-1.0) Aspartate Amino Transf 12 U/L (15-37) (AST/SGOT) Alanine Aminotransferase 20 U/L (12-78) (ALT/SGPT) Alkaline Phosphatase 59 U/L (45-117) Total Protein 6.1 GM/DL (6.4-8.2) Albumin 2.9 GM/DL (3.4-5.0) Result Diagram: 06/03/1640606/03/167 Connor Romero MD Jun 03, 2016 14:10
[2016-06-03 16:00] LABS: RHEUMATOID FACTOR TRIGGER LESS THAN 10.0 IU/ML (0.0-14.9)
--- NOTE | 2016-06-03 19:54 | HHI.PR ---
Subjective Remarks C/R Surg POD # 1 afebrile, VSS UO good c/o pain lt shoulder less pain around rectum Objective - Vital Signs Date Time Temp Pulse Resp B/P Pulse Ox O2 Delivery O2 Flow Rate FiO2 06/03/16 16:20 18 06/03/16 16:00 99.3 96 122/64 97 06/03/16 10:17 21 06/02/16 14:45 Nasal Cannula 2 Result Diagram: 06/03/1640606/03/16406 Objective Remarks PE alert abd - soft, rectal wound clean, open A/P Assessment and Plan Imp: stable dae-rectal swelling, no obv abscess several other subcut nodules - prob similar - may not benefit from bx - ? trail steroids Aj Alonzo MD Jun 03, 2016 19:54
[2016-06-03 21:23] LABS: INTERNATIONAL NORMALIZED RATIO 1.1 RATIO; PROTHROMBIN TIME - PATIENT 11.9 SEC (9.8-11.6)
[2016-06-03] MEDS: SODIUM CHLOR 0.9% 1000 ML INJ 1,000 ML IV SCH (21:36)
[2016-06-03] MEDS: GABAPENTIN 300 MG CAP PO SCH (21:41)
--- NOTE | 2016-06-03 23:17 | HHI.PR ---
Addendum to Inpatient Note Addendum Reason: Additional Documentation Additional Information Patient sitting up in bed, comfortable, talking to mother. He had no concerns. Vitals reviewed and within normal limits except borderline tachycardia (HR 91). Christofer Alejandra MD R1 Jun 03, 2016 23:17
[2016-06-04] VITALS: BP 122/68; PULSE 86; RESP 20; TEMP 99; O2SAT 96
[2016-06-04] MEDS: ONDANSETRON HCL 4 MG/2 ML VIAL IVP PRN (01:43)
[2016-06-04] MEDS: PIPERACIL-TAZO 3.375 GM PREMIX 50 ML IV SCH ×2 (04:37→10:54)
[2016-06-04 05:24] LABS: AUTOMATED NEUTROPHIL # 9.7 TH/MM3 (1.8-7.7); BASOPHIL % 0.2 % (0.0-2.0); EOSINOPHIL % 0.1 % (0.0-4.0); HEMATOCRIT 30.9 % (39.0-51.0); LYMPH % 6.6 % (9.0-44.0); LYMPHOCYTE # 0.7 TH/MM3 (1.0-4.8); MEAN CORPUSCULAR HEMOGLOBIN 26.2 PG (27.0-34.0); MEAN CORPUSCULAR HGB CONC 32.7 % (32.0-36.0); NEUT % 87.1 % (16.0-70.0); PLATELET COUNT 290 TH/MM3 (150-450); RED BLOOD COUNT 3.86 MIL/MM3 (4.50-5.90); RED CELL DISTRIBUTION WIDTH 15.8 % (11.6-17.2); WHITE BLOOD COUNT 11.1 TH/MM3 (4.0-11.0)
[2016-06-04 05:32] LABS: HEMO FLAGS AUTO DIFF
[2016-06-04 05:52] LABS: ANION GAP 6 MEQ/L (5-15); AST (GOT) 17 U/L (15-37); BICARBONATE 25.6 MEQ/L (21.0-32.0); BLOOD UREA NITROGEN 10 MG/DL (7-18); CHLORIDE 108 MEQ/L (98-107); GLOMERULAR FILTRATION RATE 127 ML/MIN (>89); POTASSIUM 3.9 MEQ/L (3.5-5.1); SODIUM (NA) 140 MEQ/L (136-145)
[2016-06-04 05:56] LABS: ALKALINE PHOSPHATASE 57 U/L (45-117); ALT (GPT) 22 U/L (12-78); TOTAL BILIRUBIN ADULT 0.6 MG/DL (0.2-1.0)
[2016-06-04] MEDS: ASPIRIN 325 MG TAB PO SCH (07:14)
[2016-06-04 07:59] LABS: PLATELET ESTIMATE SMEAR NORMAL (NORMAL); PLATELET MORPHOLOGY NORMAL (NORMAL); SCAN/DIFF AUTO DIFF CONFIRMED
[2016-06-04 08:00] VITALS: BP 123/81; PULSE 81; RESP 17; TEMP 97.7; O2SAT 99
[2016-06-04] MEDS: SODIUM CHLORIDE 0.9% FLUSH 5 ML FLUSH FLUSH SCH (08:43)
[2016-06-04] MEDS: TIMOLOL MALEATE 0.5% OPHT SOLN 5 ML BTL EACH EYE SCH (08:44)
[2016-06-04] MEDS ORDERED: PHARMACY ORDERED LAB XX ONE (08:45)
[2016-06-04] MEDS: prednisoLONE ACETATE 1% OPHT SUSP 5 ML BTL EACH EYE SCH ×2 (08:45→13:02)
[2016-06-04] MEDS: BRIMONIDINE TARTRATE 0.2% OPHT SOLN 5 ML BTL EACH EYE SCH (08:45)
[2016-06-04] MEDS: ATROPINE SULFATE 1% OPHT SOLN 2 ML BTL EACH EYE SCH ×2 (08:46→13:02)
--- NOTE | 2016-06-04 08:53 | HHI.FPPN ---
Subjective Remarks Pt seen and examined this morning. No acute evenets overnight. AFVSS. Lip swelling is resolved. Pt reports that skin lesions are significantly improved. Area on left thigh that is to be drained later this afternoon is also significantly less swollen. Denies chest pain, headache, vision changes, shortness of breath abdominal pain. He has not yet been evaluated by Rheumatology. (Dee Dee Hogue MD R2) Objective Vitals Vital Signs Date Time Temp Pulse Resp B/P Pulse Ox O2 Delivery O2 Flow Rate FiO2 06/04/16 00:00 99.0 86 20 122/68 96 06/03/16 20:00 98.0 91 20 138/78 98 06/03/16 16:20 18 06/03/16 16:00 99.3 96 17 122/64 97 06/03/16 15:33 18 06/03/16 12:00 98.4 85 17 118/73 98 06/03/16 10:17 99 21 I/O 06/03/16 06/03/16 06/03/16 06/04/16 06/04/16 06/04/16 07:00 15:00 23:00 07:00 15:00 23:00 Intake Total 1138 ml 480 ml 740 ml 1360 ml 1079 ml Output Total 1600 ml 700 ml 600 ml 950 ml Balance -462 ml -220 ml 140 ml 410 ml 1079 ml Intake Oral 360 ml 480 ml 240 ml 360 ml IV Total 778 ml 500 ml 1000 ml 1079 ml Output Urine Total 1600 ml 700 ml 600 ml 950 ml # Bowel Movements 0 0 0 0 (Dee Dee Hogue MD R2) Result Diagram: 06/04/16 04506/04/163 Objective Remarks GENERAL: This is a well-nourished, well-developed patient, lying comfortably in bed SKIN: Multiple, large indurated areas on bilateral buttocks, bilateral upper extremities, left scapular area,left thigh, and right hip have significantly improved and are barely palpable. Non-erythematous. No drainage present. Bandage over right incision dry with minimal serosanguineous drainage. Right hip with dressing from recent hip surgery, c/d/i. CARDIOVASCULAR: Regular rate and rhythm without murmurs, gallops, or rubs. RESPIRATORY: Clear to auscultation. Breath sounds equal bilaterally. No wheezes , rales, or rhonchi. GASTROINTESTINAL: Abdomen soft, non-tender, nondistended. MUSCULOSKELETAL: Right foot splint. No calf tenderness. NEUROLOGICAL: Awake and alert. Normal speech. (Dee Dee Hogue MD R2) A/P Assessment and Plan 40-year-old male with a PMH significant for ankylosing spondylitis. Admitted for perianal abscess and new onset skin induration on upper and lower extremities, which is resolving. Discharge Planning DC pending further workup likely 1-[address] Travis wdw Dr. Short (Dee Dee Hogue MD R2) Attending Attestation Pt. examined and case discussed with resident physicians I have read the above note and agree with the assessment/plan as discussed with me I was involved in all medical decision making for this patient Troy Short MD (Troy Short MD) Problem List: (1) Skin abnormalities Status: Acute Plan: Unclear of etiology: autoimmune process versus infectious versus allergic /reaction to hardware from hip replacement. -Pt reports significant improvement this morning, skin lesions barely palpable. Pt received 4 mg of Decadron yesterday. -White blood cell count slightly elevated to 11.1, likely due to steroid -Biopsy of left thigh lesion initially planned for later this afternoon; however , this lesion is now significantly reduced in size and would likely not benefit from biopsy due to lack of specimen. Dalia Banda has been informed. 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 No loculated fluid collections. Mild's primary degenerative type changes at the shoulder joint. (2) Perirectal abscess Status: Acute Plan: Colorectal consulted and following - s/p debridement and I&D of the area , no drainage expressed per patient. No biopsy obtained in OR. - CT scan without obvious fluid collection See above. (3) Swelling of both lips Status: Acute Plan: Resolved Patient with acute lip swelling yesterday. He denies experiencing facial swelling in the past. Unclear etiology. Differential includes anesthesia side effect versus medication side effect versus other - Decadron 4 mg IV x1 - Benadryl 50 mg IV 1 - Hold Mundo-I - Continue to monitor for additional side effects from any medications. (4) Ankylosing spondylitis Status: Acute Plan: History of ankylosing spondylitis that has been complicated by eye complications. -Continue home eyedrops which includes the following (atropine, brimodidine- timolol, prednisolone) (5) History of total right hip arthroplasty Status: Acute Plan: Recent surgical intervention on 05/22/16 complicated by right foot drop. Was not discharged on any home antibiotics. 1 skin lesion was close to incision. Based on clinical improvement, will consider calling orthopedic surgeon as needed. -Continue home gabapentin and aspirin (6) Nutrition, metabolism, and development symptoms Status: Acute Plan: Diet: regular diet Electrolytes: Unremarkable, continue to monitor Fluids: HLIV DVT prophylaxis: SCD GI prophylaxis: Not indicated Chronic conditions: * HTN: Continue home amlodipine (Dee Dee Hogue MD R2) Dee Dee Hogeu MD R2 Jun 04, 2016 08:53 Troy Short MD Jun 04, 2016 19:06
[2016-06-04] MEDS: VANCOMYCIN INJ 2,000 MG in SODIUM CHLORID 0.9% 500 ML INJ 500 ML IV SCH (09:02)
[2016-06-04 09:19] VITALS: BP 123/81; PULSE 81; RESP 15; TEMP 97.7; O2SAT 100
[2016-06-04 12:00] VITALS: BP 125/88; PULSE 87; RESP 18; TEMP 98.5; O2SAT 100
[2016-06-04 12:50] VITALS: O2SAT 98
[2016-06-04] MEDS: ACETAMINOPHEN/HYDROcodone 325 MG/10 MG TAB PO PRN (13:01)
--- NOTE | 2016-06-04 14:38 | HHI.FF ---
Face to Face Verification Diagnosis: (1) Ankylosing spondylitis (2) Perirectal abscess (3) Perirectal cellulitis (4) Swelling of both lips (5) Skin abnormalities (6) History of total right hip arthroplasty Home Health Nursing Order: Wound care and dressing changes Nursing assessment with vital signs I have seen patient Vivienne Son on 06/04/16. My clinical findings support the need for the requested home health care services because: he requires wound care to be safely discharged. Limited ability to care for self High risk of falls I certify that my clinical findings support that this patient is homebound because: or recent operation due to rectal abscess. Post-op weakness Unsteady gait/balance Wound dressing to be changed daily. Dee Dee Hogue MD R2 Jun 04, 2016 14:38
[2016-06-04] MEDS: SODIUM CHLOR 0.9% 1000 ML INJ 1,000 ML IV SCH (15:00)
[2016-06-04] MEDS ORDERED: PRED10 PO (16:41)
[2016-06-04] MEDS ORDERED: NORC5TAB PO (16:41)
[2016-06-05] MEDS ORDERED: PHARMACY ORDERED LAB XX ONE (08:45)
[2016-06-06 23:55] LABS: MYELOPEROXIDASE 1.7 AI (<1.0); PROTEINASE-3 1.5 AI (<1.0)
[2016-06-08 03:55] LABS: BETA2 GLYCOPROTEIN I AB IGA LESS THAN 9.0 SAU (< OR = 20)
--- NOTE | 2016-06-08 10:45 | MP ---
cc: ADAM PAZ M.D. DATE OF SURGERY: 06/02/2016 PREOPERATIVE DIAGNOSIS Rectal pain, probable rectal abscess. PROCEDURE Exam under anesthesia with incision and drainage of perianal cellulitis. POSTOPERATIVE DIAGNOSIS Rectal pain, probable rectal abscess. SURGEON Dr. Paz DETAILS OF PROCEDURE After adequate anesthesia sedation, the patient was placed in the left lateral decubitus position. His legs were supported appropriately with wedges and supporting devices as were his arms and upper extremities. The buttocks were taped apart, prepped with Betadine solution and draped in the usual sterile fashion. Examination revealed induration and thickening along the anterior right side of the anal canal. Digital exam revealed good tone with no masses inside the canal with no mucosal irregularity. No fluctuance was noted. The area anteriorly was very indurated and thickened. An 18-gauge needle was inserted with release of some serous fluid but no purulent drainage. A radial incision was made over the area entering the subcu tissue down to abscess. There appeared to be edema in the subcu tissue and some serous fluid but no sign of any purulent fluid. The cavity was probed and explored to the extent of the induration. No connection to the anal canal was identified. The cavity was then irrigated copiously and packed with iodoform gauze, Kerlix dressing and large Fluff dressing externally. The patient tolerated the procedure quite well and was brought to the recovery room in stable condition. MD TAMMY Granados/KARLA /10:54 PM /10:40 AM
== END 2016-06-04 17:30 | disposition home health service (06) ==
LOC: NEPC 03:03 → INTOOBSV 08:38 → NEDA 08:38 → N07B 11:31
PROVIDERS: ADMIT Family Medicine; ATTEND Family Medicine
DX: K61.2 Anorectal abscess (principal); M21.371 Foot drop, right foot; I10 Essential (primary) hypertension; F12.90 Cannabis use, unspecified, uncomplicated; M45.9 Ankylosing spondylitis of unspecified sites in spine; Z96.643 Presence of artificial hip joint, bilateral
CPT/HCPCS: 00902; 46040; 71020; 72193; 73200; 73223; 80053; 80074; 80202; 81001; 85025; 85598; 85610; 85613; 85652; 85730; 86021; 86038; 86140; 86146; 86147; 86160; 86225; 86235; 86256; 86430; 86812; 87040; 87205; 87328; 87329; 93005; 99284; A9579; G0378; J1100; J1200; J2250; J2270; J2370; J2405; J2543; J2710; J3010; J3370; J7030; J7040; Q9967; 76937